=== PATIENT | male | born 1960 | race Caucasian/White ===

== ENCOUNTER → 2017-01-08 | Outpatient (CLI) | payer OTHER ==
--- NOTE | 2017-01-08 07:21 | DIAGNOSTIC IMAGING REPORT ---
BILIARY ULTRASOUND CLINICAL HISTORY: Abdominal pain vomiting COMPARISON STUDY: No previous studies for comparison. FINDINGS: The pancreas appears sonographically normal. There is a 21 mm right lobe hepatic cyst containing a single septation. There is a small amount of sludge in the gallbladder. No shadowing calculi are visualized. There is no gallbladder wall thickening. There is no pericholecystic fluid. There is no right-sided hydronephrosis. There is no intrahepatic biliary ductal dilatation. The common bile duct is at the upper limits of normal in size. IMPRESSION: 1. 21 mm septated right lobe hepatic cyst 2. Small amount of sludge in the gallbladder. No shadowing calculi identified Electronically signed by: Franklin Flowers M.D. 01/08/2017 7:19 AM Dictated Date/Time: 01/08/2017 7:17 AM
== END | disposition home or self-care (01) ==
LOC: C.ULTR 06:22
PROVIDERS: ATTEND Family Medicine
DX: R10.9 Unspecified abdominal pain (principal); R11.10 Vomiting, unspecified; K76.89 Other specified diseases of liver

== ENCOUNTER 2024-05-15 09:38 | Observation (INO) ==
--- NOTE | 2024-05-08 15:14 | Anesthesiology Consultation ---
Date of Service May 08, 2024 Assessment & Plan (1) Encounter for pre-operative examination: - to anesthesiologist discretion if CXR needs updated DOS. - Per nurse practitioner home assessments on 05/08/24: No known infectious disease contacts, current infectious disease symptoms in past 10 days or COVID positive test result in the past 30 days. Chart Review Chart Review: Acceptable Risk for Surgery and Patient NOT seen in Pre Admission Testing History Surgery Operation Date: 05/15/24 11:15 Proposed Procedures p Robotic Assisted Laparoscopic Simple Prostatectomy - Brayden Sanches DO Height/Weight Height: 5 ft 9 in Weight: 95.254 kg Allergies Allergy/AdvReac Type Severity Reaction Status Date / Time No Known Allergies Allergy Verified 05/08/24 14:39 Medications Home Medications Medication Instructions Recorded Confirmed Last Taken cetirizine 10 mg tablet 10 mg PO BID PRN Allergy Symptoms 08/31/20 05/08/24 18:00 olmesartan 20 1 tab PO QAM 12/10/23 05/08/24 Unknown mg-hydrochlorothiazide 12.5 mg tablet finasteride 5 mg tablet 5 mg PO QAM 05/08/24 05/08/24 Unknown tamsulosin 0.4 mg capsule 0.4 mg PO QAM 05/08/24 05/08/24 Unknown Past Medical History Medical History (Updated 05/08/24 @ 15:09 by Jaylene Hearn PA-C) BPH (benign prostatic hyperplasia) GERD (gastroesophageal reflux disease) Diet related History of COVID-19 2019: mild cold symptoms. resolved Hx of colonic polyps Hypertension Unable to void d/t the enlargment of the prostate, straight caths QID Past Family History Family History Mother Family history of diabetes mellitus Hypertension Father Family history of diabetes mellitus Other No family history of adverse response to anesthesia Past Surgical History Surgical History History of colonoscopy Hx of prostate biopsy S/P scrotal varicocelectomy S/P tonsillectomy Social History Smoking Status: Never smoker Do You Dip or Chew Tobacco: No Hx Alcohol Use: No Alcohol type: wine Hx Substance Use: No substance use type: does not use Lab Results Anesthesia Preop Results Results Anesthesia Widget: WBC 9.76 K/ul (4.8-10.8) 04/23/24 Hgb 13.8 g/dl (14.0-18.0) L 04/23/24 Hct 42.1 % (42.0-52.0) 04/23/24 Plt 243 K/uL (130-400) 04/23/24 Na 141 mmol/L (136-145) 04/23/24 K 3.5 mmol/L (3.5-5.1) 04/23/24 Cl 105 mmol/L (98-107) 04/23/24 CO2 27 mmol/L (21-32) 04/23/24 BUN 16 mg/dl (6-23) 04/23/24 Creat 0.77 mg/dl (0.6-1.4) 04/23/24 Glucose Level 134 mg/dl (70-99(Fasting)) H 04/23/24 Testing Electrocardiogram Date: 04/23/24 NSR, rate 93 bpm Possible LA enlargement Low voltage QRS Chest X-Ray Date: 04/23/24 Faint right lower lung airspace opacity . This may represent atelectasis, pneumonia, and/or aspiration. Other Testing Abdomen pelvis CT 01/28/24 No definite evidence of acute abdominal or pelvic pathology
[2024-05-15] MEDS ORDERED: ONDANSETRON INJ 2 MG/ML 2 ML VIAL ONE (09:39)
[2024-05-15] MEDS ORDERED: DEXAMETHASONE SOD INJ 4 MG/ML VIAL ONE (09:39)
[2024-05-15] MEDS ORDERED: ROCURONIUM BROMIDE 10 MG/ML 5 ML VIAL IV ONE ×2 (09:39→14:09)
[2024-05-15] MEDS ORDERED: PROPOFOL IV EMULSION 10 MG/ML 20 ML VIAL IV ONE (09:39)
[2024-05-15] MEDS ORDERED: LIDOCAINE 2% 2 ML VIAL/AMP(20MG/ML) INFIL ONE (09:39)
[2024-05-15] MEDS ORDERED: SUGAMMADEX SODIUM 200 MG/2 ML VIAL IV ONE (09:41)
[2024-05-15] MEDS ORDERED: MIDAZOLAM HCL 1 MG/ML 2ML VIAL ONE (09:41)
[2024-05-15] MEDS ORDERED: fentaNYL citrate PF 100 MCG/2 ML VIAL ONE ×2 (09:41→12:59)
[2024-05-15] MEDS: LR 15ML/HR IV SCH (10:15)
--- NOTE | 2024-05-15 10:41 | History & Physical Bridge Note ---
Date of Service May 15, 2024 History & Physical Bridge Note I have examined the patient, reviewed the History & Physical and in the interval since the performance of the History & Physical I have noted the following changes of clinical significance: no changes noted
[2024-05-15] MEDS ORDERED: ONDANSETRON INJ 2 MG/ML 2 ML VIAL IV PRN ×2 (10:56→15:59)
[2024-05-15] MEDS ORDERED: ATROPINE SULFATE 0.1 MG/ML 10ML SYR IV PRN (10:56)
[2024-05-15] MEDS ORDERED: ePHEDrine sulfate 50 MG/ML AMP IV PRN (10:56)
[2024-05-15] MEDS ORDERED: PROMETHAZINE HCL 6.25 MG in SODIUM CHLORIDE 0.9% 50 ML IV PRN (10:56)
[2024-05-15] MEDS: ceFAZolin 2000MG 2,000 MG/15 ML SYR IV SCH ×2 (11:26→19:45)
[2024-05-15] MEDS: SURGICEL ABSORB HEMOSTAT 2IN X 14IN TOP ONE (14:07)
[2024-05-15] MEDS: FLOSEAL HEMOSTATIC MATRIX 10ML TOP ONE (14:07)
[2024-05-15] MEDS: VANCOMYCIN HCL 1000MG/20ML VIAL ONE (14:08)
[2024-05-15] MEDS: BUPIVACAINE 0.5 % 5 MG/1 ML MPF 30ML VIAL ONE (14:19)
--- NOTE | 2024-05-15 14:54 | Operative Report ---
PG Post Operative Report Pre & Post Diagnosis Operation Date: 05/15/24 11:15 Pre-Op Diagnosis: Severe prostate enlargement, bladder outlet obstruction Post-Op Diagnosis: Severe prostate enlargement, bladder outlet obstruction I identified the patient and participated in the time-out.: Yes Procedure Operation Date: 05/15/24 11:15 Actual Procedures p Robotic Assisted Laparoscopic Simple Prostatectomy(Not Applicable) - Brayden Sanches, DO Surgeon Brayden Sanches, II, DO Marble Polisher Hand Joe CHIANG Estimated Blood Loss 30 Findings Consistent with Post-Op Diagnosis Large prostate with large median lobe and obstruction. Specimens Prostate Adenoma Drains 26 Fr Silicon Pinon catheter. Anesthesia Type General Complications none Disposition Disposition: Recovery Room Indications Patient with Severe prostate enlargement with bladder outlet obstruciton. Risk and benefits were discussed at length. Patient elected to undergo robotic assisted laparoscopic Simple Prostatectomy. Description of Procedure The patient was brought to the operative suite and placed under general endotrac heal intubation anesthesia in the supine position. The patient was transferred to the dorsal lithotomy position. At this point, the patient prepped and draped in the usual sterile fashion and a timeout was completed. Preoperative antibiotics of Ancef 2 grams had been given. GRETEL's and SCD's were placed on the patient's lower extremities. A catheter was placed using sterile technique. With the time out completed the patient was placed into Trendelenburg and the skin at the umbilicus was anesthetized. A small incision was made superior to the umbilicus. A Varess Needle was placed and confirmed to be in the abdominal cavity. Water drop test passed. The Abdominal cavity was insufflated to 15 mmHG. The camera port was then placed. A laparoscopic camera was placed into the port and the abdominal cavity inspected. No concerning features were noted. At this point, the skin was marked for port placement and 8mm working ports were placed. The skin was anesthetized down to fascia and an approx 1cm incision was made to place the 3 x 8mm ports. A 12 mm and 5 mm assistant professor of dietetics ports were also placed in similar fashion under direct visualization. The patient was transferred into steep Trendelenburg position and the legs lowered. The robot was positioned and docked. The camera was placed and all trocars were positioned under direct visualization. Joe CHIANG was integral in port placement, camera utilization, and docking procedure. She remained in sterile attire and then proceeded to assist the remainder of the case. At this point, I transitioned to the robotic console. At this point, the sigmoid colon was mobilized superiorly and the pelvis assessed. Adhesions were freed to allow mobilization. The bladder was then filled utilizing the 18 [place] catheter that had been placed. A vancomycin infused saline solution was used to irrigate the bladder and distend the bladder to full. The peritoneum in the midline was assessed and the tissue was opened exposing the bladder muscle. The bladder muscle was then incised utilizing the sharp dissection and cautery. The mucosal layer was encountered next. The mucosa was then entered and the distended bladder was drained the suction was utilized to suction off majority of the fluid. At this point the bladder was further opened fully accessing through the posterior wall the bladder. The large prostate with large median lobe was immediately identified and the trigone and ureters bilaterally were able to be identified. A stay suture with a 0 Vicryl was placed on the right and left side in order to tack the bladder utilizing the stay suture as retraction and the lateral wall. A Weck clip was used. These were remained in place until the end of the case and they were removed and taken out without any major issues. The third arm was utilized for retraction of the base of the bladder. A third 1-0 Vicryl suture was then placed through the median lobe of the prostate and used for manipulation and retraction of the prostate and median lobe during the resection. Care was taken to monitor the ureter orifice bilaterally with the trigone and the insertion into the bladder. Also the bladder neck was monitored. Starting at approximately the 6 o'clock position a incision was made at the bladder neck underneath the median lobe of the prostate. This was widened. Minimal cautery was utilized. Some small vessels were encountered and able to be cauterized. The median lobe was able to be retracted upwards and the posterior dissection was able to advance forward after the more avascular plane was entered and the adenoma was able to be manipulated and retracted off the surrounding tissue. Circumferentially around the bladder neck and incision was made utilizing a combination of sharp dissection and cautery. The lateral lobes were able to be freed and once again the avascular plane was entered and the adenoma able to be dissected. Once the entire circumferential area up to the 12 o'clock position was opened the prostate tissue was able to be better removed. Retraction was then taken more superiorly on the prostate using the Vicryl suture for retraction and assistance and the third arm. The Pinon catheter remained in place throughout the process to allow identification of the prostatic urethra during the resection. Circumferential resection was then completed down along the capsule fibers. Minor small vessels were encountered through the resection these were able to be cauterized. A large portion of the lateral lobes and the median lobe were able to be resected off of the capsule fibers en bloc. Once the apex of the prostate was encountered. The dissection was taken down towards the location of the catheter. No major bleeding or other issues were encountered during the dissection. The tissue was able to free easily. Once down along the apex the adenoma tissue was excised and with manipulation able to be removed from within the bladder. This was set aside into an Endo Catch bag. The entire resection area was inspected. Some minor bleeding vessels were able to be cauterized. Additional prostatic tissue along the lateral lobes was able to be further resected with some nodules of adenoma removed separately and placed with the main specimen. No major bleeding or other issues were noted. The resection appeared to adequately debulk the large adenoma growth within the transition zone of the prostate. The entire ureter was inspected. No issues were seen at the trigone or bladder neck. All bleeding had been well- controlled. A V-Loc suture was then utilized to reapproximate the bladder neck to the urethral mucosa. No major areas of bleeding or other issues were noted. The catheter utilized during the resection was then exchanged for a 26 [place] silicone catheter. This was directed into the bladder. Once positioned the balloon was elevated to 20 cc. The catheter balloon was able to maintain within the bladder without major issue. No major issues or concerns were noted. No significant bleeding was noted. The area was irrigated multiple times. Along the left lateral pelvic wall and the posterior portion of the pelvis Surgicel sheets were placed. Additionally Floseal was placed in the same areas. The entire bladder was inspected no major issues or concerns. No signs of significant bleeding. The catheter remained in good position. At this point a running V-Loc suture was used to close the mucosal layer of the bladder. The muscular layer was then closed using an additional V-Loc suture. Finally the peritoneum was closed in a third layer utilizing a the lock suture. After complete closure the bladder was filled utilizing the Pinon catheter and the vancomycin infused saline solution. The bladder was able to be fully distended no sign of any leakage or other issues. Watertight closure had been achieved. No signs of major bleeding or other issues. The catheter was then set to drainage. The entire abdomen was inspected one final time. No bleeding or injuries or areas of concern were noted. No major bleeding, lesions, abnormalities or other concerning features were noted. All of the specimen had been placed in the Endo Catch bag. The 3 retraction sutures were removed from the abdomen. A count was completed all counts were correct. At this point, the robot was undocked and moved away from the patient. The patient was taken out of Trendelenberg. The port sites were all assessed laparoscopically. The endoscopic bag was moved into the midline port. The 12 mm port site was closed with the Bandar Martell device. The other ports were assessed and no issues observed. The umbilical incision was opened further exposing fascia which was then opened in order to removed the prostate in the bag. The prostate adenoma was removed. A running 1-0 PDS suture was used to close fascia. The skin at each site was closed with a stapling device. The area was cleaned and bandaged placed on each incision. The patient was cleaned and bandaged, aroused from anesthesia, and transferred to the pacu in stable condition having tolerated the procedure well with no complications. I was present and participated in all aspects of the procedure. Fiona CHIANG was critical in the portions as mentioned above. Will plan to observe postoperatively and monitor. Staple removal in 7 to 10 days. Will need to set up imaging at the time of staple removal with nursing. Pinon to be remain in place for likely 10 to 14 days. Will have patient complete CT cystogram in approximately 14 days with follow-up for pathology and catheter removal afterwards I attest to the content of the Intraoperative Record and any orders documented therein. Any exceptions are noted below.
[2024-05-15] MEDS: fentaNYL citrate PF 100 MCG/2 ML VIAL IV PRN (14:58)
--- NOTE | 2024-05-15 15:42 | Anesthesiology Progress Note ---
Date of Service May 15, 2024 Anesthesia Post Procedure Vital Signs Vital Signs: Temp Pulse Resp BP Pulse Ox O2 Del Method O2 Flow Rate 05/15/24 15:30 92 H 13 134/87 92 Room Air 0 05/15/24 15:20 37.1 C 92 H 15 138/83 96 Room Air 0 05/15/24 15:10 91 H 16 137/85 97 Nasal Cannula 4 05/15/24 15:00 86 15 128/83 96 Nasal Cannula 4 05/15/24 14:50 84 15 141/82 H 94 Nasal Cannula 4 05/15/24 14:40 36.7 C 87 14 136/78 93 Nasal Cannula 4 05/15/24 10:08 36.8 C 77 20 166/106 H 97 Room Air Pain Intensity Abdomen: Pain Intensity: 4 Transfer of Care Handoff Completed per policy Notes Mental Status: alert / awake / arousable Patient Amnestic to Procedure: Yes Nausea / Vomiting: adequately controlled Pain: adequately controlled Airway Patency, RR, SpO2: stable & adequate BP & HR: stable & adequate Hydration State: stable & adequate Anesthetic Complications: no major complications apparent
[2024-05-15 15:47] LABS: Hematocrit (blood only) 42.2 % (42.0-52.0); Hemoglobin 13.8 g/dl (14.0-18.0); Mean Corpuscular Hemoglobin 27.2 pg (25.0-34.0); Mean Corpuscular Hgb Conc 32.7 g/dL (32.0-36.0); Mean Corpuscular Volume 83.2 fL (80.0-100.0); Mean Platelet Volume 10.5 fL (9.4-12.4); Platelet Count 191 K/uL (130-400); RDW Coefficient of Variation 13.6 % (11.5-14.5); RDW Standard Deviation 41.3 fL (36.4-46.3); Red Blood Count 5.07 M/uL (4.70-6.10); White Blood Count 16.67 K/ul (4.8-10.8)
[2024-05-15] MEDS ORDERED: CETIRIZINE HCL 10 MG TABLET PO PRN (15:59)
[2024-05-15] MEDS ORDERED: oxyCODONE HCL IR 5 MG TAB (IMMEDIATE RELEASE) PO PRN (15:59)
[2024-05-15] MEDS ORDERED: MoRPHine SULFATE 4 MG/ML 1 ML CARP\\VIAL IV PRN (15:59)
[2024-05-15] MEDS ORDERED: MoRPHine SULFATE 2 MG/ML CARP IV PRN (15:59)
[2024-05-15 16:05] LABS: BUN Creatinine Ratio 18.9 (10-20); Calcium 8.6 mg/dl (8.6-10.3); Creatinine Clr Calc Pharmacy 100.1 ml/min; Potassium 3.6 mmol/L (3.5-5.1)
[2024-05-15 16:14] LABS: Basophils # (auto) 0.06 K/uL (0.00-0.20); Basophils % (auto) 0.4 %; Eosinophils # (auto) 0.01 K/uL (0.00-0.50); Eosinophils % (auto) 0.1 %; Immature Granulocytes # (auto) 0.08 K/uL (0.01-0.20); Immature Granulocytes % (auto) 0.5 %; Lymphocytes # (auto) 0.96 K/uL (1.20-3.40); Lymphocytes % (auto) 5.8 %; Monocytes # (auto) 0.39 K/uL (0.11-0.59); Monocytes % (auto) 2.3 %; Neutrophils # (auto) 15.17 K/uL (1.40-6.50); Neutrophils % (auto) 90.9 %
[2024-05-15] MEDS: SODIUM CHLORIDE 0.9% 1,000 ML IV SCH (16:26)
[2024-05-15] MEDS: ACETAMINOPHEN 325 MG TAB PO SCH (16:26)
[2024-05-15] MEDS: oxyCODONE HCL IR 5 MG TAB (IMMEDIATE RELEASE) PO PRN (19:45)
[2024-05-15] MEDS: HEPARIN SOD 5,000 UNIT/0.5 ML VIAL SQ SCH (21:12)
[2024-05-15] MEDS: DOCUSATE SODIUM 100 MG CAP PO SCH (21:12)
--- OUTSIDE RECORDS SUMMARY | 2024-05-16 08:56 | External Medical Summary | Continuity of Care Document ---
Author Name Unknown Organization [address] [place] [phone] Care Team Providers Care Trade Show Coordinator Name Role Phone Bernard Sauceda Primary Care Physician [phone] Encounter [facility] JENNIF[facility] [phone] Date(s): 04/29/24 - 04/29/24 [facility] 0 [facility] 207 [facility] [address] [address] [phone] Encounter Diagnosis Body mass index [BMI] 33.0-33.9, adult(Discharge Diagnosis) - 04/29/24 HBP (high blood pressure)(Discharge Diagnosis) - 04/29/24 BPH with urinary obstruction(Discharge Diagnosis) - 04/29/24 Medication monitoring encounter(Discharge Diagnosis) - 04/29/24 Discharge Disposition: Home or Self Care Attending Physician: MD Sauceda Joseph P Allergies, Adverse Reactions, Alerts No Known Allergies Assessment and Plan Extracted from: Title:Office Visit Note Author:MD Sauceda Jos eph P Date:04/29/24 1.HBP (high blood pressure ) Chronic, stable and at goal less than 140/90 mm Hg. CMP ordered prior to next visit. 2.BPH with urinary obstruction Having surgery - he is stopping tamsulosin and this may result in increase blood pressure I have personally spent 23 minutes performing uahw-yh-kflf and puc-ltyj-oq-face activities on this date of service. My activities included reviewing past records prior tothe encounter, reviewed past lab results, with extensive counseling. Immunizations Given and Recorded Vaccine Date Status Refusal Reason influenza virus vaccine, inactivated 04/29/24 Give n influenza virus vaccine, inactivated 03/09/22 Give n influenza virus vaccine, inactivated 05/06/21 Jignesh rded influenza virus vaccine, inactivated 1 04/09/18 Re corded influenza virus vaccine, inactivated 04/15/16 Jignesh rded influenza virus vaccine, inactivated 04/21/15 Jignesh rded influenza virus vaccine, inactivated 05/14/13 Give n zoster vaccine, inactivated 10/21/22 Recorded zoster vaccine, inactivated 2 07/15/22 Recorded SARS-CoV-2 (COVID-19) mRNA-1273 vaccine 3 06/24/21 Recorded SARS-CoV-2 (COVID-19) Ad26 vaccine 4 10/04/20 Jignesh rded SARS-CoV-2 (COVID-19) Ad26 vaccine 10/04/20 Record ed influenza virus vaccine, live 04/11/17 Recorded tetanus/diphtheria/pertuss, acel (Tdap) 05/14/13 G iven tetanus toxoids-diphtheria, Td (Adult) 12/28/95 Re corded 1Result Comment: 2018-08-26: Historical information-source unspecified 2Result Comment: Per [facility] 3Result Comment: 2021-06-27: Historical information-source unspecified 4Result Comment: at [facility], no side-effects Medications cetirizine 10 mg oral tablet Start: 07/16/17 9:20:00 AM EST, 1 tab, PO, Daily, Disp# 90 tab, Refills: 4, PRN: as needed for allergy symptoms, Pharmacy: [facility]/pharmacy #[id number] Start Date: 07/16/17 Stop Date: 10/09/18 Status: Ordered finasteride Start: 04/29/24 1:04:00 PM EST Start Date: 04/29/24 Status: Ordered hydrochlorothiazide-olmesartan 12.5 mg-20 mg oral tablet Start: 12/12/23 1:43:00 PM EDT, 1 tab, PO, Daily, Disp# 90 tab, Refills: 6, Pharmacy: [facility]/pharmacy #[id number] Start Date: 12/12/23 Status: Ordered Suprep Bowel Prep Kit oral liquid Start: 12/07/23 4:34:00 PM EDT, See Instructions, Disp# 354 mL, Refills: 0, Take as directed., Pharmacy: [facility]/pharmacy #[id number] Start Date: 12/07/23 Status: Ordered tamsulosin Start: 04/29/24 1:03:00 PM EST Start Date: 04/29/24 Status: Ordered Tears Naturale Free ophthalmic solution Start: 05/14/13 9:15:00 AM EST, 1 drop, both eyes, bid, Disp# 30 mL, Refills: 30, other Start Date: 05/14/13 Status: Ordered Tylenol Extra Strength Start: 01/20/15 9:48:00 AM EDT, 500 mg =, PO, As indicated Start Date: 01/20/15 Status: Ordered Mental Status 04/29/24 Barriers to Learning one year None evide nt Mandatory Health Literacy Documentation Yes Health Literacy Communication Barriers N ever Primary Language Norwegian Problem List Condition Confirmation Course Effective Dates Status H ealth Status Informant Gallbladder sludge Confirmed Active CRP elevated Confirmed Active Diverticulosis Confirmed Active Family history of diabetes mellitus in father Confirmed Active History of varicocele Confirmed Active History of adenomatous polyp of colon Confirmed Active HBP (high blood pressure) Confirmed Active Impaired fasting glucose Confirmed Active Snoring Confirmed Active Weight disorder Confirmed Active Diagnosis Diagnosis Type Effective Dates Health Status Clinical Service Informant Body mass index [BMI] 33.0-33.9, adult Discharge Diagnosis 04/29/24 Non-Specified HBP (high blood pressure) Discharge Diagnosis 04/29/24 Non-Specified Medication monitoring encounter Discharge Diagnosis 04/29/24 Non-Specified BPH with urinary obstruction Discharge Diagnosis 04/29/24 Non-Specified Procedures Procedure Date Related Diagnosis Body Site Status Colonoscopy 1, 2 12/17/23 Complete d Varicocele 3 10/21/20 Completed Scrotal Ultrasound 4 07/23/20 Comp leted Colonoscopy 5, 6, 7 09/11/18 Compl eted Ultrasound 8 01/08/17 Completed Colonoscopy and biopsy of colon 9, 10 08/06/13 Completed Tonsillectomy and adenoidect [place]; younger than age 12 1966 Completed [place] tooth Completed 1- The rectum, sigmoid colon, descending colon, splenic flexure, transverse colon, hepatic flexure, ascending colon, cecum and recto-sigmoid colon are normal. - No specimens collected. 2- Repeat colonoscopy in 5 years for surveillance. 3Left scrotal exploration, spermatoceletomy with hydrocelectomy 4Impression: 1. Normal sonographic appearance of the testes. No testicular mass. 2. Multiloculated 9.1 x 5.1 x 6.6 cm cystic focus within the left epididymis which could reflect a spermatocele or hydrocele 5repeat in 2023 66 mm polyp in the cecum, removed with hot snare. Resected and retrieved. One 3 mm polyp at the hepatic flexure, removed with cold biopsy forces. Resected and retrieved, Non bleeding hemorrhoids. Diverticulitis in the sigmoid colon 7two tubular adenomas 81. 21mm sptated right lobe hepatic cyst. 2. Small amount of sludge in the gallbladder. No shadowing calculi identified. 9Results: Tubular adenoma 10Findings: A sessile polyp was found in the cecum. The polyp was 5 mm in size. A few diverticula were found in the sigmoid colon. Await pathology results. Vital Signs Most recent to oldest [Reference Range]: 1 Height 176.5 cm (04/29/24 1:04 PM) Patient Weight 105.1 kg (04/29/24 1:04 PM) Body Mass Index 33.74 kg/m2 (04/29/24 1:04 PM) Heart Rate 86 bpm (04/29/24 1:04 PM) Respiratory Rate 18 br/min (04/29/24 1:04 PM) Blood Pressure 122/82mmHg (04/29/24 1:04 PM) Cuff Pulse Pressure 40 mmHg (04/29/24 1:04 PM) Social History Social History Type Response Smoking Status Never smoked cigaret naseem Sex Sex Representation Male (finding) FCM Outpt Note * MD Komal, Bernard Wakefield: PERFORM Event Display: FCM Outpt Note Authored Date: [id number] Chief Complaint 6 month f/u History of Present Illness For follow up. Getting prostate surgery in April and prostate is getting larger. Blood pressure is in range. No problems with medication. Did notget Tdap and would like Flu vaccine. Physical Exam Vitals & Measurements HR:86(Monitored) RR:18 BP:122/82 SpO2:98% HT:176.5cm WT:105.100kg(Dosing) WT:105.1kg BMI:33.74 PHQ2 Data(Data Documented on:04/29/2024 13:04) Emotional health assessment NEGATIVE Gen - No acute distress Heart - regular Lungs - clear Assessment/Plan 1.HBP (high blood pressure) Chronic, stable and at goal less than 140/90 mm Hg. CMP ordered prior to next visit. 2.BPH with urinary obstruction Having surgery - he is stopping tamsulosin and this may result in increase blood pressure I have personally spent 23 minutes performing ingu-qg-msnn and djm-tqpm-cf-face activities on this date of service. My activities included reviewing past records prior tothe encounter, reviewed past lab results, with extensive counseling. Problem List/Past Medical History Ongoing CRP elevated Diverticulosis Family history of diabetes mellitus in father Gallbladder sludge HBP (high blood pressure) History of adenomatous polyp of colon History of varicocele Impaired fasting glucose Low TSH level| Status: Inactive Snoring Weight disorder Resolved Acute dermatitis Angioedema Community acquired pneumonia Epidermoid cyst of skin IgE mediated urticaria Left varicocele Rash Spermatocele Procedure/Surgical History Colonoscopy| Service Date: 12/17/2023Varicocele| Service Date: 10/21/2020crotal Ultrasound| Service Date: 07/23/2020olonoscopy| Service Date: 09/11/2018Ultrasound| Service Date: 01/08/2017Colonoscopy and biopsy of colon| Service Date: 08/06/2013Tonsillectomy and adenoidectomy; younger than age 12| Service Date: tooth Medications acetaminophen(Tylenol Extra Strength), 500 mg, PO, As indicated cetirizine(cetirizine 10 mg oral tablet), 10 mg= 1 tab, PO, Daily, PRN, 4 refills finasteride hydrochlorothiazide-olmesartan(hydrochlorothiazide-olmesartan 12.5 mg-20 mg oral tablet), 1 tab, PO, Daily, 6 refills influenza virus vaccine, inactivated(influenza virus vaccine, inactivated preservative-free TRIvalent IM inj), 0.5 mL, IM, ONCE magnesium sulfate/potassium sulfate/sodium sulfate(Suprep Bowel Prep Kit oral liquid), See Instructions ocular lubricant(Tears Naturale Free ophthalmic solution), 1 drop, both eyes, bid, 30 refills tamsulosin Allergies NKA Social History Smoking Status Never smoked cigarettes Alcohol - No Risk Use:Current Type:Wine Frequency:1-2 times per year Average drinks per episode in last year:1 Employment/School Status:Employed Description:[employer] [place] Exercise Duration (average number of minutes):240 Times per week:Daily Exercise type:Walking - Comments: 1/2 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 at work, all day Home/Environment Lives with:Spouse Living situation:Home/Independent Nutrition/Health Type of diet:Regular Wants to lose weight:Yes Other - Comments: not a Substance Abuse - Denies Substance Abuse Tobacco - Denies Tobacco Use Use:Never smoker Family History Cholecystectomy: Mother. Hypertension: Mother. Testicular cancer.: Brother (Dx at 36 years). Type II diabetes mellitus: Father. Health Status Family Member(s) Family Member(s) Relationship: Mother, Age: 82 Years, Cause: pancreatitis/infection Relationship: Father, Age: 63 Years, Cause: multiple myeloma Immunizations Vaccine Date Status zoster vaccine, inactivated 10/21/2022 Recorded zoster vaccine, inactivated 07/15/2022 Recorded Comments : Per [facility] influenza virus vaccine, inactivated 03/09/2022 Given SARS-CoV-2 (COVID-19) mRNA-1273 vaccine 06/24/2021 Recorded Comments : 2021-06-27: Historical information-source unspecified influenza virus vaccine, inactivated 05/06/2021 Recorded SARS-CoV-2 (COVID-19) Ad26 vaccine 10/04/2020 Recorded Comments : at [facility], no side-effects SARS-CoV-2 (COVID-19) Ad26 vaccine 10/04/2020 Recorded influenza virus vaccine, inactivated 04/09/2018 Recorded Comments : 2018-08-26: Historical information-source unspecified influenza virus vaccine, live 04/11/2017 Recorded influenza virus vaccine, inactivated 04/15/2016 Recorded influenza virus vaccine, inactivated 04/21/2015 Recorded tetanus/diphtheria/pertuss, acel (Tdap) 05/14/2013 Given influenza virus vaccine, inactivated 05/14/2013 Given tetanus toxoids-diphtheria, Td (Adult) 12/28/1995 Recorded Recommendations Health Maintenance Pending(in the next year) OverDue Adult Influenza Vaccine due12/23/23and every 1year Due Adult COVID-19 Vaccination due04/29/24Unknown Frequency Adult Social Determinants of Health Screening due04/29/24Unknown Frequency Adult Tdap/Td Vaccine due04/29/24Unknown Frequency Satisfied(in the past 1 year) Satisfied Body Mass Index on04/29/24.Satisfied by JOEL Kim Kyla Lipid Screening on11/20/23.Satisfied by Contributor_system, [email or web address] Electronic Signature on File Electronically Reviewed/Signed by: Bernard Sauceda MD Author Signature Dt/Tm:04/29/2024 01:17 PM Department of Family Medicine [facility] Patient Care team information Care Team Personnel Name: MD Komal, Bernard Wakefield Position: Physician - Family Med Member Role: Primary Care Provider Address: [address] [place] [address] Care Team Related Persons Name: EBONI BOUCHER Name: JUICE BOUCHER"
[2024-05-16] MEDS ORDERED: LOSARTAN POTASSIUM 50 MG TAB PO SCH (09:00)
[2024-05-16] MEDS: LOSARTAN/HCTZ 50/12.5MG TAB PO SCH (09:06)
[2024-05-16] MEDS: TAMSULOSIN HCL 0.4 MG CAP PO SCH (09:06)
--- NOTE | 2024-05-16 09:19 | Urology Progress Note ---
Date of Service May 16, 2024 Assessment & Plan (1) BPH w urinary obs/LUTS: Plan - POD #1 s/p Robotic Assisted Laparoscopic Simple Prostatectomy with Dr. Sanches - Feeling well, progressing as expected - Afebrile with stable vitals - Labs reviewed - WBC 16.63, Hemoglobin 12.1, Creatinine 0.90 - Minimal pain - Pinon draining w/hematuria Plan- - Advance diet as tolerated - Maintain Pinon catheter - Encourage ambulation - Continue supportive are and pain management as needed - Will reassess later today with plan for possible discharge home pending patient progression Admission and Anticipated Discharge Date Admission Date: May 15, 2024 Subjective Patient seen at bedside today Awake and resting in bed on arrival No acute distress Feeling well overall Pinon draining w/hematuria He reports minimal pain No f/c/n/v Tolerating clear liquid diet Ambulated without issue Review of Systems Constitutional: as per Subjective / HPI Genitourinary: + as per Subjective / HPI Physical Exam Constitutional: no acute distress Respiratory: no respiratory distress and no labored breathing Gastrointestinal (Abdomen): Percussion/Palpation: abdomen soft; abdomen nontender Incisions appropriate, meri intact with gauze dressing covering. Skin: Warm and dry Neurologic: moves all extremities and awake Psychiatric: A+Ox3, euthymic affect Genitourinary: Pinon intact and draining w/hematuria Results & Data Vital Signs (Past 12 Hours) Vital Signs Temp Pulse Resp BP Pulse Ox O2 Del Method 05/16/24 07:10 36.9 C 79 16 122/70 96 Room Air 05/16/24 03:09 36.8 C 76 16 108/64 94 Room Air 05/15/24 23:06 37.2 C 87 16 109/68 93 Room Air PG Care Time/CCT Total # of Minutes Spent Total Time Spent with Patient: Total time spent is greater than 50% in coordination of care (as documented) at patient's floor/unit and/or counseling patient: Coding Level of Care Code None Diagnoses BPH w urinary obs/LUTS N40.1; N13.8
[2024-05-16 10:08] LABS: Basophils # (auto) 0.03 K/uL (0.00-0.20); Basophils % (auto) 0.2 %; Eosinophils # (auto) 0.01 K/uL (0.00-0.50); Eosinophils % (auto) 0.1 %; Hematocrit (blood only) 37.1 % (42.0-52.0); Hemoglobin 12.1 g/dl (14.0-18.0); Immature Granulocytes # (auto) 0.08 K/uL (0.01-0.20); Immature Granulocytes % (auto) 0.5 %; Lymphocytes # (auto) 1.89 K/uL (1.20-3.40); Lymphocytes % (auto) 11.4 %; Mean Corpuscular Hemoglobin 27.3 pg (25.0-34.0); Mean Corpuscular Hgb Conc 32.6 g/dL (32.0-36.0); Mean Corpuscular Volume 83.6 fL (80.0-100.0); Mean Platelet Volume 10.4 fL (9.4-12.4); Monocytes # (auto) 1.25 K/uL (0.11-0.59); Monocytes % (auto) 7.5 %; Neutrophils # (auto) 13.37 K/uL (1.40-6.50); Neutrophils % (auto) 80.3 %; Platelet Count 182 K/uL (130-400); Red Blood Count 4.44 M/uL (4.70-6.10); White Blood Count 16.63 K/ul (4.8-10.8)
[2024-05-16 10:14] LABS: BUN Creatinine Ratio 16.7 (10-20); Calcium 8.3 mg/dl (8.6-10.3); Creatinine Clr Calc Pharmacy 100.1 ml/min; Potassium 3.4 mmol/L (3.5-5.1)
[2024-05-16 11:47] VITALS: BP 107/59; RESP 17; TEMP 98.1; O2SAT 95
[2024-05-16 14:58] VITALS: PULSE 95
--- NOTE | 2024-05-19 08:38 | Discharge Summary ---
Date of Service May 19, 2024 Admission HPI Per Admitting Provider 64-year-old male with severe prostate enlargement and bladder outlet obstruction admitted for robotic simple prostatectomy Admission Exam Per Admitting Provider General: Alert in no acute distress. HEENT: Normocephalic Atraumatic. Inspection normal. Psychologic: Normal affect. Respiratory: Nonlabored. Cardiovascular: No tachycardia Skin: [place] and Dry. Principal Diagnosis Severe prostate enlargement, bladder outlet obstruction Discharge Exam Constitutional no acute distress Respiratory no respiratory distress and no labored breathing Gastrointestinal (Abdomen) Percussion/Palpation: abdomen soft; abdomen nontender Incisions appropriate, meri intact Neurologic moves all extremities and awake Psychiatric A+Ox3, euthymic affect Genitourinary Pinon intact Discharge Data Allergies Allergy/AdvReac Type Severity Reaction Status Date / Time No Known Allergies Allergy Verified 05/15/24 10:07 Procedures Performed Operation Date: 05/15/24 11:15 Actual Procedures p Robotic Assisted Laparoscopic Simple Prostatectomy(Not Applicable) - Brayden Sanhces, DO Hospital Course (1) BPH w urinary obs/LUTS: Plan 64-year-old male admitted status post robotic assisted laparoscopic simple prostatectomy with Dr. Sanches. Patient tolerated procedure well. No issues postoperatively. Remained afebrile with stable vitals. Labs appropriate. Pinon draining appropriately with light red urine. Patient tolerated diet. Ambulated without issue. Reported minimal pain. Patient was discharged home on postop day #1 with a Pinon catheter in place. He was in stable condition at time of discharge. Discharge instructions were reviewed and all questions were answered. Appropriate postoperative follow-up appointments were in place. Total Time Total Time Spent Total Time Spent (In Minutes): 15 Discharge Plan Discharge Items Patient Disposition: Home - Self-Care Reason For Visit: Benign Prostatic Hyperplasia with Urinary Obstruct Discharge Diagnosis: BPH with urinary obstruction Condition on Discharge: Good Activity: Per Instructions section Lifting: No more than 10 pounds Bathing Comment: Ok to shower. No tub baths or soaks. Sexual Activity: Wait until after follow-up appointment Exercise/Sports: Wait until after follow-up appointment Driving/Machine Use: Do not drive if taking prescription pain medication Non-emergency contact: Surgeon and Urologist Call non-emergency contact if: you have any medication questions, your symptoms worsen, your pain is not controlled, you have a fever, your wound has increased redness, your wound has increased drainage and your wound pain has increased Follow-up/Referrals: [facility] [place] Group] - 05/28/24 8:45 am Brayden Sanches DO [Physician] - 05/28/24 11:30 am Bernard Sauceda MD [Primary Care Provider] - [facility],Nurse [FAKE FOR SCHEDULES] - 05/26/24 1:45 pm (Staple removal with nursing) Diet: Regular Addtl Attending Provider Instructions: You are scheduled for staple removal with nursing in the urology clinic on 05/26/2024 at 1:45 PM. You are scheduled for a cystogram at the radiology department at [facility] on 05/28/2024 at 8:45 AM. You are then scheduled for your follow-up with Dr. Sanches on 05/28/2024 at 11:30 AM. Please take all medications as prescribed and keep all follow-ups as scheduled. Please call our office at [phone] with any questions, concerns or need to reschedule appointments for any reason. We are happy to assist you. We have sent an antibiotic to your pharmacy, please take as directed. You can stop tamsulosin and finasteride. Tips for your recovery at home: Dont be alarmed by brownish or reddish blood or clots in your urine. This is a result of the procedure. This may occur off and on for weeks to months after the procedure but should continue to improve. Drink plenty of fluids during the day (enough to keep your urine very light colored). This will help keep a healthy flow of urine. Do not lift >10 lbs until your followup Avoid constipation. Please use a stool softener (Colace) for the first two weeks after your procedure Be sure to finish the antibiotics as prescribed. If you go home with a catheter, please wash tubing where it enters your body twice daily with mild soap (Dove or Dial). Once your catheter is removed, expect some blood in your urine and some burning when you urinate. You should have an appointment to have this removed, if you do not please call our office to arrange. When to call [facility] at [phone]: Your urine contains heavy blood clots or your catheter stops draining You are constantly leaking urine Fever of 101F or higher, chills, nausea, or vomiting Your pain is not relieved with medication Pending Studies at Discharge: Yes (pathology) Stand-Alone Forms: [facility], Smoking Cessation Medications and DC Order Prescriptions: New cephalexin 500 mg capsule 500 mg PO BID 5 Days Qty: 10 0RF oxycodone 5 mg tablet 5 mg PO Q8H PRN (Reason: pain) Qty: 7 0RF Continued cetirizine 10 mg tablet 10 mg PO BID PRN (Reason: Allergy Symptoms) olmesartan-hydrochlorothiazide 20-12.5 mg tablet 1 tab PO QAM Discontinued tamsulosin 0.4 mg capsule 0.4 mg PO QAM Patient Comments: ran out on sunday finasteride 5 mg tablet 5 mg PO QAM Discharge Orders: Discharge Order (Routine); Ordered 05/16/24 Ordered By: Darlene Raymond Admission Data Admit Date/Time: 05/15/24 14:32 Attending Provider: Brayden Sanches Admit Provider: Brayden Sanches Primary Care Provider: Bernard Sauceda Other Interventions: Discharge Summary Assessment (RN) Last Done: 05/16/24 14:56 Coding Level of Care Code 10600 IN/OBS DISCH 30 MIN/LESS Diagnoses BPH w urinary obs/LUTS N40.1; N13.8
== END 2024-05-16 15:26 | disposition home or self-care (01) ==
LOC: ASU 09:38 → INTOOBSV 14:32 → 3E 14:32